=== PATIENT | female | born 1970 | race Caucasian/White ===

== ENCOUNTER 2019-07-10 08:42 | Outpatient (CLI) | payer OTHER ==
[~2019-07-10 08:42] MED LIST: CALCIO DEL MAR500 MG; CALCITRIOL0.25 MCG; LEVOTHYROXINE75 MCG; MEDROL2 MG; PLAQUENIL
== END 2019-07-10 09:30 | disposition home or self-care (01) ==
LOC: NUCLEAR 08:42
DX: I20.9 Angina pectoris, unspecified (principal)
CPT/HCPCS: 78452; 93017; A9500

== ENCOUNTER 2022-09-11 07:18 | Outpatient (CLI) | payer OTHER | END 2022-09-11 07:19 | disposition home or self-care (01) | LOC: NUCLEAR 07:18 | PROVIDERS: ATTEND Internal Medicine Cardiovascular Disease | DX: I25.9 Chronic ischemic heart disease, unspecified (principal) | CPT/HCPCS: 78452; 93017; A9500; J0153 ==